=== PATIENT | female | born 1995 | race Two or more races ===

== ENCOUNTER 2020-04-18 19:51 | Inpatient (IN) | payer OTHER ==
[~2020-04-18] VITALS: Ht 149.9 cm; Wt 54.5 kg
[2020-04-18] MEDS ORDERED: ACETAMINOPHEN 325 MG TABLET PO PRN (21:30)
[2020-04-18] MEDS ORDERED: PETROLATUM,WHITE 28 GM JELLY TP PRN (21:30)
[2020-04-18] MEDS ORDERED: ONDANSETRON HCL 4 MG TABLET PO PRN (21:30)
[2020-04-18] MEDS ORDERED: IBUPROFEN 400 MG TABLET PO PRN (21:30)
[2020-04-18] MEDS ORDERED: NICOTINE 14 MG/24 HOUR PATCH TD PRN (21:30)
[2020-04-18] MEDS ORDERED: LOPERAMIDE HCL 2 MG CAPSULE PO PRN (21:30)
[2020-04-18] MEDS ORDERED: MAGNESIUM HYDROXIDE SUSPENSION 30 ML UDCUP PO PRN (21:30)
[2020-04-18] MEDS ORDERED: MAG HYDROX/AL HYDROX/SIMETH ES 30 ML SUSPENSION UDCUP PO PRN (21:30)
[2020-04-18] MEDS ORDERED: CloNIDine HCL 0.1 MG TABLET PO PRN (21:30)
[2020-04-18] MEDS ORDERED: DOCUSATE SODIUM 100 MG CAPSULE PO PRN (21:30)
[2020-04-18] MEDS ORDERED: ALBUTEROL SULFATE HFA 90 MCG/PUFF 8 GM INHALER IH PRN (21:30)
[2020-04-18] MEDS ORDERED: GuaiFENesin/D-METHORPHAN [SUGAR-FREE] 200-20MG/10 ML SYRUP UDCUP PO PRN (21:30)
[2020-04-18 21:56] LABS: BASOPHILS % (AUTO) 0.6 % (0.0-2.0); EOSINOPHILS % (AUTO) 1.7 % (1.0-6.0); HEMATOCRIT 42.2 % (36-46); HEMOGLOBIN 13.6 g/dL (12.0-16.0); LYMPHOCYTES # (AUTO) 2.9 K/uL (1.0-4.8); LYMPHOCYTES % (AUTO) 33.3 % (22.0-44.0); MEAN CORPUSCULAR HEMOGLOBIN 28.8 pg (26.0-34.0); MEAN CORPUSCULAR HGB CONC 32.2 G/dL (31.0-37.0); MEAN CORPUSCULAR VOLUME 90 fL (80-100); MONOCYTES # (AUTO) 0.7 K/uL (0.1-1.0); MONOCYTES % (AUTO) 8.2 % (2.0-9.0); NEUTROPHILS % (AUTO) 56.2 % (40.0-70.0); PLATELET COUNT (AUTO) 233 K/uL (150-450); RED BLOOD CELL COUNT(AUTO) 4.72 MIL/uL (4.00-5.20); RED CELL DISTRIBUTION WIDTH 12.7 % (11.5-14.5)
[2020-04-18 22:04] LABS: ANION GAP 10 mmol/L (8-16); CALCIUM, TOTAL 9.1 mg/dL (8.8-10.5); CARBON DIOXIDE 25 mmol/L (22-29); CHLORIDE 105 mmol/L (98-107); CREATININE 0.75 mg/dL (0.60-1.30); GLOMERULAR FILTR. RATE CALC > 60 mL/min (>60); GLUCOSE,RANDOM 118 mg/dL (70-110); POTASSIUM 3.7 mmol/L (3.5-5.1); SODIUM SERUM 140 mmol/L (136-145); UREA NITROGEN, BLOOD 9 mg/dL (7-18)
[2020-04-18 22:10] LABS: ALANINE AMINOTRANSFERASE 29 U/L (12-78); ALBUMIN 3.7 g/dL (3.4-5.0); ALKALINE PHOSPHATASE 68 U/L (46-116); ASPARTATE AMINOTRANSFERASE 16 U/L (15-37); BILIRUBIN,TOTAL 0.7 mg/dL (0.1-1.0); TOTAL PROTEIN, SERUM 7.3 g/dL (6.4-8.2)
[2020-04-18 22:10] LABS: AMPHET/METH SCREEN,URINE NEGATIVE (NEGATIVE); BARBITURATE SCREEN, URINE NEGATIVE (NEGATIVE); BENZODIAZEPINES SCREEN,URINE NEGATIVE (NEGATIVE); CANNABINOID SCREEN,URINE NEGATIVE (NEGATIVE); COCAINE SCREEN,URINE NEGATIVE (NEGATIVE); METHADONE SCREEN, URINE NEGATIVE (NEGATIVE); OPIATE SCREEN,URINE NEGATIVE (NEGATIVE); PHENCYCLIDINE SCREEN,URINE NEGATIVE (NEGATIVE)
[2020-04-18 22:47] LABS: INFLUENZA TYPE A NEGATIVE FOR TYPE A (NEGATIVE); INFLUENZA TYPE B NEGATIVE FOR TYPE B (NEGATIVE)
[2020-04-18 23:45] VITALS: BP 98/59
[2020-04-19 04:50] VITALS: BP 97/63
[2020-04-19 08:09] VITALS: BP 97/68
[2020-04-19] MEDS: SERTRALINE HCL 50 MG TABLET PO SCH (11:51)
[2020-04-19 16:40] VITALS: BP 102/58
[2020-04-19 20:35] VITALS: BP 112/70
[2020-04-20 04:27] VITALS: BP 105/68
[2020-04-20 08:02] VITALS: BP 99/68
[2020-04-20] MEDS: SERTRALINE HCL 50 MG TABLET PO SCH (08:31)
[2020-04-20 16:23] VITALS: BP 107/58
[2020-04-20 20:27] VITALS: BP 104/69
[2020-04-21] MEDS: SERTRALINE HCL 50 MG TABLET PO SCH (08:18)
[2020-04-21 15:18] VITALS: BP 100/70
[2020-04-21 20:05] VITALS: BP 113/64
[2020-04-22] MEDS: SERTRALINE HCL 50 MG TABLET PO SCH (08:15)
[2020-04-22 12:30] VITALS: BP 100/58
[2020-04-22] MEDS ORDERED: SERT50TA12 PO (15:10)
== END 2020-04-22 17:30 | DRG 880 ==
LOC: EMS 19:51 → 6S 21:21
PROVIDERS: ADMIT Internal Medicine; ATTEND Internal Medicine
DX: R45.851 Suicidal ideations (principal); F33.2 Major depressive disorder, recurrent severe without psychotic features; Z20.828 Contact with and (suspected) exposure to other viral communicable diseases; Z91.5 Personal history of self-harm; F41.9 Anxiety disorder, unspecified; Z79.899 Other long term (current) drug therapy
CPT/HCPCS: 87426; 87804; G0480